=== PATIENT | male | born 1960 | race Caucasian/White ===

== ENCOUNTER → 2018-06-22 | Outpatient (CLI) | payer BC ==
--- NOTE | 2018-06-22 18:46 | ECHO ---
[email or web address] [address] [address] Main: [phone] Fax: Transthoracic Echocardiogram Name: JAJA LANGFORD MR#: [id number] Study Date: 06/22/2018 Study Time: 01:48 PM Date of : 1960 Age: 57 year(s) Height: 182.9 cm (72 in.) Weight: 79.38 kg (175 lb.) BSA: 2.01 m2 Gender: Male Examination: Echo Indication: Hx of Stents in past, Eval LV Function Image Quality: Contrast: Requested by: Erma Story BP: 140 mmHg/82 mmHg Heart Rate: 65 bpm Rhythm: Normal sinus rhythm with ectopy Indication: Hx of Stents in past, Eval LV Function Procedure Staff Tele Marketing Executive: Raj Slade RDCS Reading Physician: Kaleb Del Real MD Requesting Provider: Conclusions: Normal size left ventricle. Normal global systolic LV function. EF is 72 %. No regional wall motion abnormality. Normal RV function. No pericardial effusion. Measurements: Chambers Valvular Assessment AV/MV Valvular Assessment TV/PV Normal Normal Normal Name Value Range Name Value Range Name Value Range Ao Corry (MM): 3.2 cm (2.2 cm-3.7 AV Vmax: 1.17 m/s (1 m/s-1.7 PV Vmax: 1.10 m/s (0.6 m/s-0.9 cm) m/s) m/s) IVSd (2D): 0.8 cm (0.6 cm-1.1 AV maxP mmHg ( - ) PV PGmax: 5 mmHg ( - ) cm) LVOT Vmax: 0.76 m/s (0.7 m/s-1.1 LVDd (2D): 4.4 cm (4.2 cm-5.9 m/s) cm) MV E Vmax: 0.81 m/s ( - ) LVDs (2D): 2.6 cm (2.1 cm-4 MV A Vmax: 0.50 m/s ( - ) cm) MV E/A: 1.62 ( - ) LVPWd (2D): 0.9 cm (0.6 cm-1 MV meanP mmHg ( - ) cm) LVEF (2D): 72 (>=54 %) Continued Measurements: Chambers Valvular Assessment AV/MV Name Value Name Value LADs: 3.6 cm MV Annulus: 3.1 cm LADs Lon.7 cm MV E' Septal: 0.04 m/s LA Area: 15.3 cm2 MV E/E' Septal: 19.00 Patient: JAJA LANGFORD Study Date: 06/22/2018 Page 1 of 2 01:48 PM LA Volume: 40 ml MV E/E' Lateral: 6.10 LA Volume Index: 19.9 ml/m2 MV VTI: 17.50 cm MR ERO: 0.040 cm2 MR PISA radius: 3 mm MR Reg. Volume: 5 ml MR Reg. Fraction: 4 % Findings: Left Ventricle: Normal size left ventricle. No LV hypertrophy. Normal global systolic LV function. EF is 72 %. No regional wall motion abnormality. Diastolic dysfunction is present. . Right Ventricle: Normal size right ventricle. Normal RV function. Left Atrium: The left atrium is normal in size. Right Atrium: The right atrium is normal in size. Mitral Valve: The mitral valve is normal in appearance. Mild mitral valve regurgitation is present. Aortic Valve: The aortic valve is tri-leaflet. There is no aortic valve regurgitation. Tricuspid Valve: The tricuspid valve appears normal. There is no tricuspid valve regurgitation. Pulmonic Valve: The pulmonic valve is normal in appearance. Trivial to mild pulmonic valve regurgitation. Aorta: The aorta is normal. Pericardium: No pericardial effusion. (No Signature Object) Patient: JAJA LANGFORD Study Date: 06/22/2018 Page 2 of 2 01:48 PM [id number]
== END ==
LOC: FCP 13:53
PROVIDERS: ATTEND Physician Assistant Medical
DX: I34.0 Nonrheumatic mitral (valve) insufficiency (principal); Z95.5 Presence of coronary angioplasty implant and graft